=== PATIENT | male | born 1995 | race Caucasian/White ===

== ENCOUNTER 2021-11-06 13:03 | Emergency (ER) | payer OTHER ==
[~2021-11-06] VITALS: Ht 160 cm; Wt 68.0 kg
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
[2021-11-06 15:26] VITALS: BP 128/67
--- NOTE | 2021-11-06 15:26 | NUR ---
Patient discharged to home in stable condition. Written and verbal after care instructions given. Patient verbalizes understanding of instruction.
== END 2021-11-06 15:26 | disposition home or self-care (01) ==
LOC: ER 13:09
DX: M25.561 Pain in right knee (principal); R07.89 Other chest pain; Y08.89XA Assault by other specified means, initial encounter; Y93.89 Activity, other specified; Y92.89 Other specified places as the place of occurrence of the external cause; Y99.8 Other external cause status
CPT/HCPCS: 71046; 73564-TC